=== PATIENT | male | born 1935 | race Caucasian/White ===

== ENCOUNTER 2019-10-01 14:36 | Outpatient (CLI) | payer MEDICARE, OTHER ==
--- NOTE | 2019-10-01 16:11 | XRAY Report ---
Reason: LUMBAR CLAUDICAL Procedure Date: 10/01/2019 Accession Number: [id number] / [id number] Procedure: XR - Lumbar Spine 2 View CPT Code: Final Report FULL RESULT: EXAM: LUMBOSACRAL SPINE RADIOGRAPHY EXAM DATE: 10/01/2019 02:47 PM. CLINICAL HISTORY: LUMBAR CLAUDICAL. COMPARISONS: None. TECHNIQUE: 3 views. FINDINGS: Alignment: Normal. No spondylolisthesis or scoliosis. Bones: Five [id number]-tadfrnc lumbar vertebral bodies are present. No fractures or bone lesions. Disks: Loss of disk height at L4-L5 and L5-S1 with endplate sclerosis. Facets: Bilateral facet arthropathy from L3-S1 levels with suggestion of severe spinal canal and bilateral neural foraminal stenosis at L4-L5 and L5-S1. Likely cause of patient's claudication. Sacroiliac Joints: Unremarkable. Soft Tissues: Normal. The visualized bowel gas pattern is normal. Osteoarthritis of bilateral hip joints. IMPRESSION: Bilateral facet arthropathy from L3-S1 levels with suggestion of severe spinal canal and bilateral neural foraminal stenosis at L4-L5 and L5-S1 levels. Likely cause of patient's claudication. RADIA
== END 2019-10-01 14:37 | disposition home or self-care (01) ==
LOC: DI 14:36
PROVIDERS: ATTEND Internal Medicine
DX: M51.36 Other intervertebral disc degeneration, lumbar region (principal); M51.37 Other intervertebral disc degeneration, lumbosacral region; M47.816 Spondylosis without myelopathy or radiculopathy, lumbar region; M47.817 Spondylosis without myelopathy or radiculopathy, lumbosacral region
CPT/HCPCS: 72100

== ENCOUNTER 2019-10-08 08:43 | Outpatient (CLI) | payer MEDICARE, OTHER ==
--- NOTE | 2019-10-08 10:35 | MRI Report ---
Reason: SPINAL CLAUDICATION Procedure Date: 10/08/2019 Accession Number: [id number] / [id number] Procedure: MRI - Lumbar Spine W/O CPT Code: Final Report FULL RESULT: EXAM: MRI LUMBAR SPINE WITHOUT CONTRAST EXAM DATE: 10/08/2019 09:50 AM. CLINICAL HISTORY: Spinal claudication. COMPARISON: LUMBAR SPINE 2 VIEW 10/01/2019 2:41 PM. TECHNIQUE: Multiplanar, multisequence T1-weighted and fluid-sensitive sequences of the lumbar spine from T12 to S1 without contrast. Other: None. FINDINGS: Spinal Canal: The conus terminates at L1. Unremarkable appearance of the conus medullaris. Alignment: Minimal lower lumbar dextroconvex asymmetric curvature. Bone Marrow: Five bdo-pro-[id number] lumbar vertebral bodies are assumed. Mild diffuse anterior vertebral body marginal spurring. No acute marrow edema. Vertebral body heights are maintained. No displaced pars defect. Disk Levels/Facets: T12-L1: Minimal degenerative changes. No disk herniation or stenosis. L1-L2: Mild chronic disk degeneration and facet arthropathy. Shallow circumferential bulge. Minimal stenosis. No nerve root compression. L2-L3: Chronic mild to moderate disk degeneration and facet arthropathy. Circumferential bulge and marginal spurring. Ligament flavum thickening. Minimal to mild right and mild to moderate left foraminal stenosis. Mild central stenosis. L3-L4: Mild disk degeneration. Moderate facet arthropathy with ligament flavum thickening. Circumferential disk bulge. Additional asymmetric right intraforaminal protrusion with osteophyte. Mild central canal and lateral recess stenosis. Foraminal stenosis is mild bilaterally. L4-L5: Mild to moderate disk degeneration. Severe facet arthropathy with ligament flavum thickening. Severe stenosis of the central canal and lateral recesses. Circumferential bulge and marginal spurring. Foraminal stenosis is minimal to mild. L5-S1: Minimal disk degeneration. Moderate facet arthropathy. Shallow posterior disk bulge. No focal extrusion or significant stenosis. Musculature: Mild diffuse fatty atrophy. Other: None. IMPRESSION: Diffuse lumbar degenerative changes. 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 Comment: The following findings are so common in adults without low back pain that while we report their presence, they must be interpreted with caution and in the context of the clinical situation. (Reference Sandyk et al, Spine 2001) Prevalence of findings in patients without low back pain: Disk degeneration (any evidence): 92% Disk desiccation/T2 signal loss: 83% Disk height loss: 56% Disk bulge: 64% Disk protrusion: 32% Annular tear/high intensity zone: 38% RADIA
== END 2019-10-08 08:44 | disposition home or self-care (01) ==
LOC: DI 08:43
PROVIDERS: ATTEND Internal Medicine
DX: M48.062 Spinal stenosis, lumbar region with neurogenic claudication (principal); M51.36 Other intervertebral disc degeneration, lumbar region
CPT/HCPCS: 72148